=== PATIENT | female | born 2000 | race Caucasian/White ===

== ENCOUNTER 2019-01-19 13:06 | Emergency (ER) | payer BC ==
[2019-01-19 13:47] LABS: #Basophils 0.1 thou/uL (0.0-0.2); #Eosinphils 0.1 thou/uL (0.0-0.7); #Lymphocytes 2.7 thou/uL (1.20-3.40); #Monocytes 0.6 thou/uL (0.11-0.59); #Neutrophils 7.5 thou/uL (1.40-6.50); %Basophils 0.8 % (0.0-1.0); %Eosinophils 1.1 % (0.0-10.0); %Lymphocytes 24.7 % (28.0-48.0); %Monocytes 5.3 % (0.0-4.0); %Neutrophils 68.2 % (31.0-61.0); Hemoglobin 14.8 g/dL (12.0-16.0); Mean Corpuscular HGB CONC 33.9 g/dL (32.0-36.0); Mean Corpuscular Hemoglobin 34.1 pg (25.0-35.0); Mean Platelet Volume 8.9 fL (7.4-10.4); Platelet Count 260 thou/uL (130-400); RBC Distribution Width 10.5 % (11.5-14.5); Red Blood Cell (RBC) Count 4.33 mill/uL (4.00-5.20); White Blood Cell (WBC) Count 10.9 thou/uL (4.8-10.8)
[2019-01-19 14:10] LABS: ALT (SGPT) 12 U/L (8-55); AST (SGOT) 17 U/L (5-30); Albumin 4.4 g/dL (3.5-5.0); Alkaline Phosphatase 56 U/L (40-150); Anion Gap 14 mmol/L (10-20); BUN (Urea Nitrogen) 13 mg/dL (8.4-21.0); Bilirubin, Total 0.3 mg/dL (0.2-1.2); Calc. Creatinine Clearance 0 mL/min (70-130); Calcium 9.9 mg/dL (7.8-10.44); Carbon Dioxide 21 mmol/L (22-29); Chloride 106 mmol/L (98-107); Estimated GFR-MDRD Greater than 90; Globulin 2.7 g/dL (2.4-3.5); Glucose 91 mg/dL (70-105); Lipase 21 U/L (8-78); Potassium 3.9 mmol/L (3.5-5.1); Protein, Total 7.1 g/dL (6.0-8.3); Sodium 137 mmol/L (136-145)
== END 2019-01-19 14:45 | disposition home or self-care (01) ==
LOC: ERS 13:06
DX: K60.2 Anal fissure, unspecified (principal); Z79.899 Other long term (current) drug therapy
CPT/HCPCS: 36415; 80053; 83690; 85025; 99283